=== PATIENT | male | born 1975 | race Caucasian/White ===

== ENCOUNTER 2021-06-29 07:37 | Outpatient (CLI) | payer BC | END 2021-06-29 07:38 | disposition home or self-care (01) | LOC: CSHULT 07:37 | PROVIDERS: ATTEND Internal Medicine Rheumatology | DX: R74.8 Abnormal levels of other serum enzymes (principal); R79.89 Other specified abnormal findings of blood chemistry; K76.9 Liver disease, unspecified | CPT/HCPCS: 76705 ==